=== PATIENT | female | born 1960 | race Caucasian/White ===

== ENCOUNTER 2017-12-16 07:29 | Day surgery (SDC) | payer BC ==
[~2017-12-16 07:29] MED LIST: HYDACE5 PO; OLME20; POTCHL10ER PO; SULTRIDS PO
== END 2017-12-16 22:58 | disposition home or self-care (01) ==
LOC: MOI US 07:29
PROC: 0HBT3ZX Excision of Right Breast, Percutaneous Approach, Diagnostic (ICD-10-PCS; principal; 2017-12-16)
DX: N60.01 Solitary cyst of right breast (principal)
CPT/HCPCS: 19083; 77065; 88304; A4648; G0279